=== PATIENT | female | born 1990 | race Caucasian/White ===

== ENCOUNTER 2022-01-07 15:27 | Emergency (ER) | payer MEDICAID ==
[~2022-01-07] VITALS: Ht 170.2 cm; Wt 65.8 kg
[2022-01-07 15:27] VITALS: BP_SYST 96
--- NOTE | 2022-01-07 15:27 | NUR ---
BROUGHT IN BY [facility], TRIAGED. ALL VSS, PT IN NO DISTRESS. Patient triaged and placed in waiting room. VSS and patient appears in no acute distress at this time. Accompanied by SELF , awaiting available bed, and MD notified of need for MSE.
--- NOTE | 2022-01-07 17:10 | NUR ---
BROUGHT BACK TO BED IN [facility], AWAITING ER BED
--- NOTE | 2022-01-07 17:36 | NUR ---
PT STATES SHE NEEDS TO LEAVE IMMEDIATELY TO GET HER CHILD. PT STATES SHE FEELS BETTER. HEPLOCK REMOVED AND PT LEFT WITHOUT BEING SEEN.
[2022-01-08] MEDS ORDERED: FAMOTIDINE 20 MG TABLET ONE (06:39)
[2022-01-08] MEDS ORDERED: predniSONE 20 MG TABLET ONE (06:40)
[2022-01-08] MEDS ORDERED: EPINEPHRINE HCL/PF 1 MG/ML AMP ONE (06:40)
== END 2022-01-07 17:36 | disposition left against medical advice (07) ==
LOC: SED 15:27
DX: T78.40XA Allergy, unspecified, initial encounter (principal); Z53.21 Procedure and treatment not carried out due to patient leaving prior to being seen by health care provider; X58.XXXA Exposure to other specified factors, initial encounter; Y93.89 Activity, other specified; Y92.89 Other specified places as the place of occurrence of the external cause; Y99.8 Other external cause status
CPT/HCPCS: J0171; J7512